=== PATIENT | female | born 1965 | race Caucasian/White ===

== ENCOUNTER 2022-12-10 19:00 | Emergency (ER) | payer BC ==
[2022-12-10 21:04] LABS: BASOPHILS ABSOLUTE AUTO 0.05 K/uL (0.00-0.10); BASOPHILS PERCENT AUTO 0.4 % (0.1-1.3); EOSINOPHILS ABSOLUTE AUTO 0.07 K/uL (0.00-0.40); EOSINOPHILS PERCENT AUTO 0.6 % (0.0-5.4); HEMATOCRIT 44.6 % (34.3-46.0); HEMOGLOBIN 14.9 g/dL (11.2-15.5); IMMATURE GRAN PERCENT AUTO 0.9 % (0.0-0.7); LYMPHOCYTES PERCENT AUTO 19.9 % (11.4-47.7); MEAN CORPUSCULAR HGB CONC 33.4 g/dL (31.6-35.5); MEAN CORPUSCULAR VOLUME 95.7 fL (81.4-99.0); MONOCYTES ABSOLUTE AUTO 0.79 K/uL (0.20-0.90); MONOCYTES PERCENT AUTO 6.8 % (3.3-12.6); NEUTROPHILS ABSOLUTE AUTO 8.27 K/uL (1.0-7.6); NEUTROPHILS PERCENT AUTO 71.4 % (40.0-78.1); PLATELET COUNT,PLT 259 K/uL (130-375); RED BLOOD CELL COUNT 4.66 M/uL (3.77-5.24); WHITE BLOOD CELL COUNT,WBC 11.6 K/uL (3.2-11.0)
[2022-12-10 21:19] LABS: CALCIUM 9.5 mg/dL (8.5-10.1); CREATININE 1.1 mg/dL (0.6-1.0); EST CRCL DRUG DOSING (CG) 55.55 mL/min; POTASSIUM,K 3.6 mmol/L (3.6-5.2)
[2022-12-10 21:20] LABS: ANION GAP 12.6 mmol/L (5.0-14.0)
[2022-12-10] MEDS ORDERED: Sodium Chloride 0.9% 1,000 ML IV ONE (21:32)
[2022-12-10] MEDS ORDERED: Iopamidol 612 MG/ML 100 ML Bottle IV SCH (21:45)
[2022-12-10] MEDS ORDERED: Sodium Chloride 0.9% 50 ML IV SCH (21:45)
== END 2022-12-11 00:11 | disposition home or self-care (01) ==
LOC: EDSEX 19:00 → JP.ED 19:00
DX: K59.00 Constipation, unspecified (principal); E11.9 Type 2 diabetes mellitus without complications; Z79.899 Other long term (current) drug therapy
CPT/HCPCS: 36415; 74176; 80048; 83690; 85025; 99283; 99284; J7030